=== PATIENT | male | born 1950 | race Caucasian/White ===

== ENCOUNTER 2022-10-30 09:56 | Emergency (ER) | payer MEDICARE ==
[~2022-10-30] VITALS: Ht 180.3 cm; Wt 95.2 kg
[2022-10-30 10:37] LABS: BASOPHILS ABSOLUTE AUTO 0.01 K/mm3 (0.00-0.23); BASOPHILS PERCENT AUTO 0 % (0-2); EOSINOPHILS ABSOLUTE AUTO 0.01 K/mm3 (0.00-0.68); EOSINOPHILS PERCENT AUTO 0 % (0-6); Hematocrit 41.2 % (37.0-53.0); Hemoglobin 14.3 g/dL (13.5-17.5); IMMATURE GRAN ABSOLUTE AUTO 0.01 K/mm3 (0.00-0.10); IMMATURE GRAN PERCENT AUTO 0 % (0-1); LYMPHOCYTES ABSOLUTE AUTO 1.49 K/mm3 (0.84-5.20); LYMPHOCYTES PERCENT AUTO 35 % (21-46); MONOCYTES ABSOLUTE AUTO 0.64 K/mm3 (0.16-1.47); MONOCYTES PERCENT AUTO 15 % (4-13); Mean Corpuscular HGB 34.3 pg (26.0-34.0); Mean Corpuscular HGB Conc 34.7 g/dL (31.5-36.5); Mean Corpuscular Volume 99 fL (80-100); NEUTROPHILS ABSOLUTE AUTO 2.09 K/mm3 (1.96-9.15); NEUTROPHILS PERCENT AUTO 49 % (41-73); Platelet Count 140 K/mm3 (150-400); RDW Coefficient Variation 12.1 % (11.7-14.2); RDW Standard Deviation 44.3 fL (35.1-46.3); Red Blood Cell Count 4.17 M/mm3 (4.30-5.90); White Blood Cell Count 4.25 K/mm3 (4.00-11.30)
[2022-10-30 11:04] LABS: Albumin, Blood 3.7 g/dL (3.4-5.0); Albumin/Globulin Ratio 0.9 (0.8-1.8); Bilirubin, Total 0.7 mg/dL (0.1-1.0); Bun/Creatinine Ratio 22.3 (12.0-20.0); Calcium, Blood 8.8 mg/dL (8.5-10.1); Creatinine, Blood 0.76 mg/dL (0.60-1.20); Globulin, Blood 3.9 g/dL (2.2-4.0); Potassium, Blood 3.7 mmol/L (3.5-5.5); Total Protein, Blood 7.6 g/dL (6.4-8.2)
[2022-10-30 12:19] LABS: Influenza A, PCR NEGATIVE (NEGATIVE); Influenza B, PCR NEGATIVE (NEGATIVE); Resp Syncytial Virus, PCR NEGATIVE (NEGATIVE)
[2022-10-30 12:28] LABS: SARS-Cov-2 (COVID-19) PCR, MMC POSITIVE (NEGATIVE)
[2022-10-30 12:44] LABS: Magnesium, Blood 2.2 mg/dL (1.6-2.4); Thyroid Stimulating Hormone 2.27 uIU/mL (0.360-4.800)
== END 2022-10-30 15:39 | disposition home or self-care (01) ==
LOC: ER 09:56
PROVIDERS: Physician Assistant; Student in an Organized Health Care Education/Training Program
DX: U07.1 COVID-19 (principal); R53.1 Weakness; J45.909 Unspecified asthma, uncomplicated
CPT/HCPCS: 0241U; 36415; 71045; 80053; 83690; 83735; 83880; 84443; 84484; 85025; 93005; 93010; 99284-25; J7030

== ENCOUNTER 2022-11-13 09:39 | Emergency (ER) | payer MEDICARE ==
[~2022-11-13] VITALS: Ht 180.3 cm; Wt 95.2 kg
[2022-11-13] MEDS ORDERED: FLUO10 PO (10:07)
[2022-11-13] MEDS ORDERED: ROSUVASTATIN CA20 MG PO (10:07)
[2022-11-13] MEDS ORDERED: LOSA50 PO (10:07)
[2022-11-13] MEDS ORDERED: DOXAZOSIN MESYLA4 M2 PO (10:07)
== END 2022-11-13 10:10 | disposition home or self-care (01) ==
LOC: ER 09:39
DX: R05.9 Cough, unspecified (principal); Z88.5 Allergy status to narcotic agent; Z79.899 Other long term (current) drug therapy; J45.909 Unspecified asthma, uncomplicated; Z86.16 Personal history of COVID-19
CPT/HCPCS: 99281

== ENCOUNTER 2023-04-04 13:32 | Emergency (ER) | payer MEDICARE, OTHER ==
[~2023-04-04] VITALS: Ht 182.9 cm; Wt 90.7 kg
[~2023-04-04 13:32] MED LIST: DOXAZOSIN MESYLA4 M2 PO; FLUO10 PO; LOSA50 PO; ROSUVASTATIN CA20 MG PO
[2023-04-04 16:00] VITALS: BP 148/76
== END 2023-04-04 16:33 | disposition home or self-care (01) ==
LOC: ER 13:32
DX: G89.11 Acute pain due to trauma (principal); M25.511 Pain in right shoulder; W11.XXXA Fall on and from ladder, initial encounter; Z88.5 Allergy status to narcotic agent; Z79.899 Other long term (current) drug therapy; J45.909 Unspecified asthma, uncomplicated
CPT/HCPCS: 71046; 96372; 99283-25; J1885